=== PATIENT | male | born 1975 | race Caucasian/White ===

== ENCOUNTER 2018-05-10 17:50 | Emergency (ER) | payer OTHER, MEDICAID ==
[~2018-05-10] VITALS: Ht 172.7 cm; Wt 82.0 kg
[2018-05-10 20:01] VITALS: BP 129/87
== END 2018-05-10 20:08 | disposition home or self-care (01) ==
LOC: ER 17:50
DX: S00.11XA Contusion of right eyelid and periocular area, initial encounter (principal); Y04.0XXA Assault by unarmed brawl or fight, initial encounter; Y93.89 Activity, other specified; Y92.240 Courthouse as the place of occurrence of the external cause; R03.0 Elevated blood-pressure reading, without diagnosis of hypertension; F17.210 Nicotine dependence, cigarettes, uncomplicated
CPT/HCPCS: 99283

== ENCOUNTER 2021-07-18 11:17 | Emergency (ER) | payer OTHER, MEDICAID ==
[~2021-07-18] VITALS: Ht 177.8 cm; Wt 91.0 kg
[2021-07-18] MEDS ORDERED: TOPUD MT (11:51)
[2021-07-18 11:56] VITALS: BP 158/100
== END 2021-07-18 12:03 ==
LOC: ER 11:56
DX: S01.511A Laceration without foreign body of lip, initial encounter (principal); X58.XXXA Exposure to other specified factors, initial encounter; Y93.89 Activity, other specified; Y92.89 Other specified places as the place of occurrence of the external cause; Y99.8 Other external cause status; K08.89 Other specified disorders of teeth and supporting structures
CPT/HCPCS: 99283